=== PATIENT | male | born 1985 | race Caucasian/White ===

== ENCOUNTER → 2019-08-19 | Outpatient (CLI) | payer OTHER ==
--- NOTE | 2019-08-19 09:33 | KCIC ---
ABDOMEN LTD History: Elevated liver function tests Comparison: None. Findings: Multiple sonographic images of the abdomen are submitted. There is no abnormality of the visualized pancreas, distal tail not well visualized due to bowel gas. Common bile duct is within normal limits about 0.2 cm. There is diffuse coarsening of the hepatic echotexture. Right lobe of the liver measured 19.2 cm longitudinal. Diffuse abnormal echogenicity fills the gallbladder lumen, gallbladder wall not significantly thickened and there is no significant pericholecystic fluid. Right kidney measured 12.3 x 4.6 x 4.9 cm, no hydronephrosis. Inferior vena cava and abdominal aorta were not well visualized on this exam due to bowel gas. Impression: 1. There is cholelithiasis filling the gallbladder lumen. 2. There is diffuse hepatic steatosis. There is mild hepatomegaly. Electronically signed by: Thomas Khan MD (08/19/2019 9:30 AM) [id number]
== END | disposition home or self-care (01) ==
LOC: KCIC US 08:44
PROVIDERS: ATTEND Internal Medicine Gastroenterology
DX: K80.20 Calculus of gallbladder without cholecystitis without obstruction (principal); K76.0 Fatty (change of) liver, not elsewhere classified
CPT/HCPCS: 76705